=== PATIENT | male | born 1950 | race Caucasian/White ===

== ENCOUNTER 2019-12-05 09:45 | Outpatient (CLI) | payer MEDICARE ==
--- NOTE | 2019-12-05 10:26 | ULT ---
Abdominal aortic ultrasound: 12/05/2019 HISTORY: Screening for abdominal aortic aneurysm TECHNIQUE: Multiplanar grayscale sonographic imaging of the abdominal aorta obtained. Imaging include s color flow and spectral analysis FINDINGS: Portions of the abdominal aorta are completely obscured by bowel gas. The imaged portions o f the abdominal aorta demonstrate no evidence for aneurysm. Proximally the abdominal aorta measures up to 2.6 cm, in the midportion the abdominal aorta measures up to 2.1 cm, and distally the abdominal aorta measures up to 2.7 cm. Bilateral common iliac arteries are patent and measure in the 1.0-1.1 cm range. IMPRESSION: Imaged portions of the abdominal aorta demonstrate no evidence for aneurysm.
== END 2019-12-05 09:46 | disposition home or self-care (01) ==
LOC: SCSULT 09:45
PROVIDERS: ATTEND Nurse Practitioner Family
DX: Z13.6 Encounter for screening for cardiovascular disorders (principal)
CPT/HCPCS: 76775

== ENCOUNTER 2021-04-28 10:27 | Outpatient (CLI) | payer MEDICARE ==
[2021-04-28 11:38] LABS: #Basophils 0.1 10x3/uL (0.0-0.2); #Eosinphils 0.2 10x3/uL (0.0-0.5); #Monocytes 0.7 10x3/uL (0.0-1.1); #Neutrophils 3.9 10x3/uL (1.5-8.4); %Basophils 1.7 % (0.0-2.0); %Lymphocytes 28.8 % (18.0-47.0); %Monocytes 9.5 % (0.0-10.0); %Neutrophils 56.6 % (40.0-75.0); Hemoglobin 15.1 g/dL (13.5-17.5); Mean Corpuscular HGB CONC 33.4 g/dL (32.0-36.0); Mean Corpuscular Hemoglobin 31.2 pg (27.0-33.0); Mean Corpuscular Volume 93.4 fl (81.2-95.1); Mean Platelet Volume 11.2 fl (7.4-10.4); Platelet Count 257 10x3/uL (150-450); Red Blood Cell (RBC) Count 4.84 10x6/uL (4.32-5.72); White Blood Cell (WBC) Count 6.9 10x3/uL (3.5-10.5)
[2021-04-28 11:49] LABS: INR-International Normal Ratio 0.9; Prothrombin Time 10.3 sec (9.5-12.1)
[2021-04-28 11:58] LABS: Anion Gap 14 mmol/L (10-20); BUN (Urea Nitrogen) 15 mg/dL (8.4-25.7); Calc. Creatinine Clearance 0 mL/min (70-130); Calcium 9.5 mg/dL (7.8-10.44); Carbon Dioxide 22 mmol/L (23-31); Chloride 109 mmol/L (98-107); Glucose 100 mg/dL (80-115); Potassium 4.5 mmol/L (3.5-5.1); Sodium 140 mmol/L (136-145)
[2021-04-28 21:35] LABS: SARS-CoV-2 PCR by NAA Not Detected (NotDetected)
== END 2021-04-28 10:28 | disposition home or self-care (01) ==
LOC: LABBT 10:27
PROVIDERS: ATTEND Orthopaedic Surgery
DX: Z01.818 Encounter for other preprocedural examination (principal); Z20.822 Contact with and (suspected) exposure to COVID-19; M16.12 Unilateral primary osteoarthritis, left hip
CPT/HCPCS: 80048; 85025; 85610; 87081; 93005; U0003; U0005; 93010

== ENCOUNTER 2021-05-03 06:57 | Day surgery (SDC) | payer MEDICARE ==
[2021-04-29 12:58] VITALS: BMI 35.7
[2021-05-03] MEDS ORDERED: Sodium Chloride 0.9% 100 ML ONE (07:49)
[2021-05-03] MEDS ORDERED: Tranexamic Acid 1,000 MG/10 ML VIAL ONE (07:49)
[2021-05-03] MEDS ORDERED: ceFAZolin 2 GM/DEX 5% 100 ML BAG ONE (07:49)
[2021-05-03] MEDS ORDERED: Vancomycin 1.5 GRAM/300 ML BAG 1.5 GM in Premix Bag 1 BAG IVPB SCH (08:00)
[2021-05-03] MEDS ORDERED: Fentanyl 100 MCG/2 ML VIAL ONE ×2 (08:16→09:06)
[2021-05-03] MEDS ORDERED: Midazolam HCl 2 mg/2 ml Vial ONE (08:16)
[2021-05-03] MEDS ORDERED: Propofol 500 MG/50 ML VIAL ONE (09:05)
[2021-05-03] MEDS ORDERED: Ketorolac Tromethamine 30 MG/ML VIAL ONE (09:45)
[2021-05-03] MEDS ORDERED: Phenylephrine 10 MG/ML VIAL ONE (09:45)
[2021-05-03] MEDS ORDERED: Bupivacaine HCl 0.5%/Epinephrine 1:200,000/PF 30 ml Vial ONE (09:45)
[2021-05-03] MEDS ORDERED: ePHEDrine 50 MG/ML VIAL ONE (09:45)
[2021-05-03] MEDS ORDERED: Bupivacaine PF 0.5% 30 ML VIAL ONE (10:20)
[2021-05-03] MEDS ORDERED: HYDROcodone/Acetaminophen 5/325 mg Tablet ONE ×2 (15:25→16:13)
[2021-05-03 15:51] VITALS: BP 104/55
== END 2021-05-03 17:05 | disposition home or self-care (01) ==
LOC: SDC 06:57
PROVIDERS: ATTEND Orthopaedic Surgery
PROC: 0SRB04A Replacement of Left Hip Joint with Ceramic on Polyethylene Synthetic Substitute, Uncemented, Open Approach (ICD-10-PCS; principal; 2021-05-03)
PROC: 3E0T3BZ Introduction of Anesthetic Agent into Peripheral Nerves and Plexi, Percutaneous Approach (ICD-10-PCS; 2021-05-03)
DX: M16.12 Unilateral primary osteoarthritis, left hip (principal); I10 Essential (primary) hypertension; E78.5 Hyperlipidemia, unspecified; Z85.46 Personal history of malignant neoplasm of prostate; Z87.891 Personal history of nicotine dependence; Z79.82 Long term (current) use of aspirin; Z79.899 Other long term (current) drug therapy
CPT/HCPCS: C1776; J1885; J2250; J2370; J2704; J3010; J3370; J3490; S0020

== ENCOUNTER 2023-11-14 13:39 | Outpatient (CLI) | payer MEDICARE | END 2023-11-14 13:40 | disposition home or self-care (01) | LOC: SCSMRI 13:39 | PROVIDERS: ATTEND Orthopaedic Surgery | DX: M48.061 Spinal stenosis, lumbar region without neurogenic claudication (principal); M47.816 Spondylosis without myelopathy or radiculopathy, lumbar region; M48.07 Spinal stenosis, lumbosacral region; M47.817 Spondylosis without myelopathy or radiculopathy, lumbosacral region | CPT/HCPCS: 72148 ==